=== PATIENT | male | born 1995 | race Two or more races ===

== ENCOUNTER 2020-08-07 14:00 | Emergency (ER) | payer OTHER ==
[2020-08-07 14:05] VITALS: BP 146/90; PULSE 93; RESP 18; TEMP 98.3
--- NOTE | 2020-08-07 14:22 | ED ---
ENT HPI - General Chief complaint: ENT Stated complaint: red sores in back of throat Source: patient Mode of arrival: ambulatory Limitations: no limitations - History of Present Illness Initial comments: 25-year-old male presenting to the emergency department with chief complaint of sores on the throat. Patient states this a benign one for approximately one week. Patient states he was taking amoxicillin 3 times a day for the past several days that he took from his aunt. Patient denies any fever chills nausea vomiting. States he ready had coronavirus back in October. He denies any cough, enlarged lymph nodes, drooling odontophagia dysphagia or dyspnea. - Related Data Previous Rx's Medication Instructions Recorded diphenhydrAMINE [Benadryl] 50 mg PO HS PRN #5 capsule 07/30/15 Allergies Allergy/AdvReac Type Severity Reaction Status Date / Time bupropion [From Wellbutrin] Allergy Unknown Verified 08/07/20 14:03 lamotrigine [From Lamictal] Allergy Rash/Hives Verified 07/30/15 20:23 Review of Systems ROS Statement: Those systems with pertinent positive or pertinent negative responses have been documented in the HPI. ROS Other: All systems not noted in ROS Statement are negative. Past Medical History Past Medical History: No Reported History Additional Past Medical History / Comment(s): [place] tremor to the right hand History of Any Multi-Drug Resistant Organisms: None Reported Past Surgical History: No Surgical Hx Reported Past Psychological History: Anxiety, Depression Past Alcohol Use History: Abuse, Daily, Heavy - Past Family History Mother Family Medical History: No Reported History (37 years of age. She does not go to a physician.) Father Family Medical History: No Reported History (His biological father has history of alcoholism and he has had minimal contact with him over the years.) Brother(s) Family Medical History: No Reported History (He has 4 half-brothers and 4 brothers that he does not know. He does not have any children although his girlfriend is being checked for .) General Exam Limitations: no limitations General appearance: alert, in no apparent distress Head exam: Present: atraumatic, normocephalic, normal inspection Eye exam: Present: normal appearance, PERRL, EOMI Pupils: Present: normal accommodation ENT exam: Present: normal exam, mucous membranes moist, TM's normal bilaterally, normal external ear exam. Absent: normal oropharynx (Mild pharyngeal erythema. No enlarged tonsils or exudates.) Neck exam: Present: normal inspection, full ROM. Absent: tenderness, lymphadenopathy (No cervical lymph nodes noted.) Respiratory exam: Present: normal lung sounds bilaterally. Absent: respiratory distress, wheezes, rales, rhonchi, stridor Cardiovascular Exam: Present: regular rate, normal rhythm, normal heart sounds. Absent: systolic murmur, diastolic murmur Extremities exam: Present: normal inspection, full ROM, normal capillary refill. Absent: tenderness, pedal edema, joint swelling Back exam: Present: normal inspection, full ROM. Absent: tenderness, CVA tenderness (R), CVA tenderness (L) Neurological exam: Present: alert, oriented X3, normal gait Psychiatric exam: Present: normal affect, normal mood Skin exam: Present: warm, dry, intact, normal color Course Vital Signs 08/07/20 14:02 Temperature 98.3 F Pulse Rate 93 Respiratory 18 Rate Blood Pressure 146/90 O2 Sat by Pulse 98 Oximetry Medical Decision Making - Medical Decision Making 25-year-old male presenting to emergency Department with a chief complaint of sore throat. On physical examination, no signs of enlarged tonsils or exudates. There is mild pharyngeal erythema. I suspect this is viral pharyngitis. Advised the patient to use salt water rinses and take [id number] Cepacol. Return parameters discussed the patient was understanding and agreeable. Case discussed with physician. Disposition Clinical Impression: Pharyngitis, Sore throat Disposition: HOME SELF-CARE Condition: Stable Instructions (If sedation given, give patient instructions): Pharyngitis (ED) Additional Instructions: Use salt water rinses or [id number] Cepacol. Follow-up with her primary care physician. Return to emergency department if symptoms worsen. Is patient prescribed a controlled substance at d/c from ED?: No Referrals: None,Stated [Primary Care Provider] - 1-2 days Time of Disposition: 14:21
== END 2020-08-07 14:34 | disposition home or self-care (01) ==
LOC: EC 14:00
DX: J02.9 Acute pharyngitis, unspecified (principal); Z88.8 Allergy status to other drugs, medicaments and biological substances; Z86.19 Personal history of other infectious and parasitic diseases
CPT/HCPCS: 99282